=== PATIENT | female | born 2000 ===

== ENCOUNTER 2024-05-30 06:04 | Inpatient (IN) | payer OTHER ==
[~2024-05-30] VITALS: Ht 170.2 cm; Wt 88.0 kg
[2024-05-30] VITALS (16 sets, daily range): BP systolic 138–171; BP diastolic 75–110; O2SAT 99
[2024-05-30] MEDS ORDERED: AMPICILLIN SODIUM 2,000 MG VIAL IV STA (07:07)
[2024-05-30] MEDS ORDERED: PRENATAL TABLE1 EAC5 PO (07:22)
[2024-05-30 07:33] LABS: URINE APPEARANCE Clear; URINE BILIRRUBIN Small (NEGATIVE); URINE BLOOD Moderate; URINE COLOR Dark Yellow; URINE GLUCOSE Negative (NEGATIVE); URINE KETONE Trace (NEGATIVE); URINE LEUKOCYTE Small; URINE NITRATE Negative
[2024-05-30 07:34] LABS: URINE BACTERIA 331.3 uL (0.0-1933); URINE CAST 3.05 uL (0.0-1.40); URINE EPITHELIAL CELLS 57.6 uL (0.0-38.8); URINE RBC 242.1 uL (0.0-20.8); URINE WBC 108.9 uL (0.0-23.2)
[2024-05-30 07:38] LABS: HEMOGLOBIN 10.5 g/dL (12.0-15.00); MEAN CELL VOLUME 76.9 fL (80.00-100.00); MEAN CORPUSCULAR HEMOGLOBIN 25.3 pg (27.00-32.0); MEAN CORPUSCULAR HGB CONC 32.9 g/dl (32.0-36.0); PLATELET COUNT 174 K/uL (150-450); RED BLOOD COUNT 4.17 M/uL (4.00-6.00); RED CELL DISTRIBUTION WIDTH 17.9 % (11.5-14.5)
[2024-05-30] MEDS ORDERED: OXYTOCIN 500 ML IV SCH (07:45)
[2024-05-30] MEDS ORDERED: RINGERS SOLUTION,LACTATED 1,000 ML IV SCH (07:45)
[2024-05-30 08:05] LABS: URINE PROTEIN 300 (NEGATIVE)
[2024-05-30 08:07] LABS: URINE MUCUS MODERATE
[2024-05-30 08:21] LABS: PARTIAL THROMBOPLASTIN TIME 26.4 SECONDS (22.0-34.0); PROTHROMBIN TIME 10.9 SECONDS (9.0-11.5)
[2024-05-30 08:27] LABS: ALBUMIN 2.5 gm/dL (3.4-5.0); BILIRUBIN TOTAL 0.38 mg/dL (0.3-1.2); CALCIUM 9.5 mg/dL (8.5-10.1); CREATININE SERUM 0.78 mg/dL (0.55-1.02); GFR 90.73; GLOBULINA 4.1 G/DL (2.4-3.5); POTASSIUM 4.1 mEq/L (3.5-5.1); TOTAL PROTEIN 6.6 gm/dL (6.4-8.2)
[2024-05-30] MEDS ORDERED: MEPERIDINE HCL/PF 50 MG/ML VIAL IV STA (10:37)
[2024-05-30] MEDS ORDERED: PROMETHAZINE HCL 25 MG/ML AMPUL IV STA (10:37)
[2024-05-30] MEDS ORDERED: AMPICILLIN SODIUM 1,000 MG VIAL IV SCH (12:00)
[2024-05-30] MEDS ORDERED: OXYTOCIN 20 UNITS/1000ML RL PIGGYBAG IV ONE (13:15)
[2024-05-30] MEDS ORDERED: OxyCODONE HCL/APAP UD (PERCOCET) PO PRN (13:15)
[2024-05-30] MEDS ORDERED: CHLORHEXIDINE GLUCONATE 120 ML BOTTLE TOP ONE (13:15)
[2024-05-30] MEDS ORDERED: ACETAMINOPHEN 325 MG TABLET PO PRN (13:15)
[2024-05-30] MEDS ORDERED: OxyCODONE HCL/APAP UD (PERCOCET) PO ONE (13:37)
[2024-05-30] MEDS ORDERED: HYDROCORTISONE 2.5% 30 GM TUBE RECTAL SCH (17:00)
[2024-05-30] MEDS ORDERED: BENZOCAINE/MENTHOL 90 ML BOTTLE TOP SCH (17:00)
[2024-05-30] MEDS ORDERED: MAGNESIUM SULFATE IN WATER 0.04 GM/ML IV.SOLN IV SCH (18:00)
[2024-05-30] MEDS ORDERED: MAGNESIUM SULFATE IN WATER 4 GM/100 ML PIGGYBACK IV NR (18:00)
[2024-05-30] MEDS ORDERED: LABETALOL HCL 200 MG TABLET PO ONE (22:30)
[2024-05-31 01:36] LABS: HEMATOCRIT 32.4 % (36.0-45.00); HEMOGLOBIN 10.5 g/dL (12.0-15.00); MEAN CELL VOLUME 77.3 fL (80.00-100.00); MEAN CORPUSCULAR HGB CONC 32.3 g/dl (32.0-36.0); PLATELET COUNT 166 K/uL (150-450); RED CELL DISTRIBUTION WIDTH 18.2 % (11.5-14.5)
[2024-05-31 01:53] LABS: ALBUMIN 2.3 gm/dL (3.4-5.0); BILIRUBIN TOTAL 0.37 mg/dL (0.3-1.2); CALCIUM 8.6 mg/dL (8.5-10.1); CREATININE SERUM 0.76 mg/dL (0.55-1.02); GFR 93.5; GLOBULINA 3.7 G/DL (2.4-3.5); POTASSIUM 4.06 mEq/L (3.5-5.1)
[2024-05-31 03:08] VITALS: BP 129/73
[2024-05-31 07:40] VITALS: BP 135/88
[2024-05-31] MEDS ORDERED: LABETALOL HCL 200 MG TABLET PO SCH (09:00)
[2024-05-31] MEDS ORDERED: MORPHINE SULFATE 4 MG/ML VIAL IV ONE (15:00)
[2024-05-31] MEDS ORDERED: MAGNESIUM SULFATE IN WATER 0.04 GM/ML IV.SOLN IV SCH (18:00)
[2024-05-31 19:06] VITALS: BP 144/79
[2024-06-01] VITALS: BP 130/80
[2024-06-01 08:45] VITALS: BP 112/78
[2024-06-01] MEDS ORDERED: IBUPROFEN800 MG PO (09:29)
== END 2024-06-01 14:56 | disposition home or self-care (01) | DRG 798 ==
LOC: LDR 06:04 → OB/GYN 12:18 → LDR 17:04 → O/R 05-31 10:37 → OB/GYN 05-31 16:31
PROVIDERS: ADMIT Specialist; ATTEND Specialist
PROC: 10E0XZZ Delivery of Products of Conception, External Approach (ICD-10-PCS; principal; 2024-05-30)
PROC: 0HQ9XZZ Repair Perineum Skin, External Approach (ICD-10-PCS; 2024-05-30)
PROC: 4A1HXCZ Monitoring of Products of Conception, Cardiac Rate, External Approach (ICD-10-PCS; 2024-05-30)
PROC: 0UB70ZZ Excision of Bilateral Fallopian Tubes, Open Approach (ICD-10-PCS; 2024-05-31)
DX: O70.0 First degree perineal laceration during delivery (principal); Z37.0 Single live birth; O99.824 Streptococcus B carrier state complicating childbirth; Z3A.38 38 weeks gestation of pregnancy; Z20.822 Contact with and (suspected) exposure to COVID-19; Z30.2 Encounter for sterilization